=== PATIENT | female | born 1960 | race Caucasian/White ===

== ENCOUNTER 2016-12-04 13:57 | Emergency (ER) | payer BC ==
[~2016-12-04] VITALS: Ht 165.1 cm; Wt 109.2 kg
[2016-12-04 13:59] VITALS: Ht 165.1 cm; Wt 109.2 kg
--- OUTSIDE RECORDS SUMMARY | 2016-12-04 14:10 | XMS REPORT | CCD ---
Author Author LAURYN JACKSON Organization Unknown Address [address] [place], [place] [address] Phone 0 Care Team Providers Care Ophthalmology Technician Name Role Phone SHYANNE, E Attending Physician 0 Vital Signs Unknown or Not Available. Allergies Allergy Code Allergy Type Reaction Status CEFTIN 865096 Drug allergy Active CEFZIL 513929 Drug allergy Active Procedures Unknown or Not Available. History of Immunizations Immunization Code Date pneumococcal, unspecified formulation 109 03/06/2014 Problems Unknown or Not Available. Results PT/INR Test Name Code Test Result Test Units Test Date/Time PT 25.8 Secs 06/10/2014 13:30 INR 2.39 06/10/2014 13:30 Medications Medication Code Dose Units Frequency Route Modification Start Date/Time Stop Date/ Time Premarin 0.3MG Oral Tablet 056647 0.3 MILLIGRAMS DAILY ORAL 05/11/2014 13:33 Atenolol 25MG Oral Tablet 579017 25 MILLIGRAMS DAILY ORAL 05/11/2014 13:33 Neurontin 100MG Oral Capsule 303685 300 MILLIGRAMS FOUR TIMES A DAY ORAL 05/11/2014 13:33 Mobic 7.5MG Oral Tablet 542020 15 MILLIGRAMS DAILY ORAL 05/11/2014 13:33 Sertraline 100MG Oral Tablet 068840 200 MILLIGRAMS DAILY ORAL 05/11/2014 13:33 Geodon 80MG Oral Capsule 586029 160 MILLIGRAMS AT BEDTIME ORAL 05/11/2014 13:33 Trazodone 50MG Oral Tablet 932625 50 MILLIGRAMS AT BEDTIME ORAL 05/11/2014 13:33 Metformin 500MG Oral Tablet 526879 500 MILLIGRAMS AT BEDTIME ORAL 05/11/2014 13:33 Tramadol 50MG Oral Tablet 010693 100 MILLIGRAMS QID ORAL 05/11/2014 13:33 Valium 2MG Oral Tablet 398343 2 MILLIGRAMS Q8 H PRN ORAL 05/11/2014 13:33 Oxycodone HCl 15MG Oral Tablet 2447950 15 MILLIGRAMS Q4 hrs PRN ORAL 05/11/2014 13:33 Coumadin 5MG Oral Tablet 590742 5 MILLIGRAMS DAILY BY MOUTH 05/11/2014 13:58 Bactrim DS 800MG-160MG Oral Tablet 564891 1 TABLET TWICE A DAY BY MOUTH 05/11/2014 14:34 Medications Administered Unknown or Not Available. Encounters Unknown or Not Available. Social History Smoking Status Code Start Date End Date Never smoker [id number] Patient Decision Aids Unknown or Not Available. Discharge Instructions You were admitted to [facility] on 06/10/2014. Should you have any questions prior to discharge, please contact a member of your healthcare team. If you have left the hospital and have any questions, please contact your primary care physician. Chief Complaint and Reason For Visit Chief Complaint Date of Onset LAB RECURRING Function Status Unknown or Not Available. Plan of Care Unknown or Not Available. Referral/Transition of Care Unknown or Not Available.
--- OUTSIDE RECORDS SUMMARY | 2016-12-04 14:10 | XMS REPORT | Continuity of Care Document ---
Author Author [facility] Organization [facility] Address Unknown Phone Unavailable Care Team Providers Care Business English Instructor Name Role Phone Guillermo Stephens Primary Care Physician [phone] Source Comments Some departments are not documenting in the electronic medical record. If you do not see the information that you expected, contact Release of Information in the Health Information Management department at [phone] for further assistance in locating additional records.[facility] Active Allergies and Adverse Reactions Allergen Noted Date Severity Reactions Comments Ceftin 02/03/2014 RASH Cefzil 02/03/2014 RASH Current Medications Prescription Sig. Disp. Refills Start End Date Status Date estrogens, conjugated Take 0.3 mg by mouth Active (PREMARIN) 0.3 mg tablet daily. traZODone (DESYREL) 50 mg Take 50 mg by mouth at Active tablet bedtime daily. metFORMIN (GLUCOPHAGE) Take 500 mg by mouth at Active 500 mg tablet bedtime daily. sertraline (ZOLOFT) 100 Take 200 mg by mouth Active mg tablet daily. atenolol (TENORMIN) 25 mg Take 25 mg by mouth Active tablet daily. ziprasidone (GEODON) 80 Take 160 mg by mouth at Active mg capsule bedtime daily. methocarbamol (ROBAXIN) Take 750 mg by mouth Active 750 mg tablet every 6 hours as needed. gabapentin (NEURONTIN) Take 300 mg by mouth Active 100 mg capsule twice daily. oxyCODONE (ROXICODONE) 5 Take 1-3 Tabs by mouth 150 Tab 0 03/07/20 Active mg tablet every 3 hours as needed 14 for Pain Earliest Fill Date: 03/07/14 oxyCODONE SR (OXYCONTIN) Take 1 Tab by mouth every 30 Tab 0 03/07/20 Active 10 mg tablet 12 hours Earliest Fill 14 Date: 03/07/14 diazepam (VALIUM) 2 mg Take 1 Tab by mouth every 30 Tab 0 03/07/20 Active tablet 8 hours as needed. 14 docusate (COLACE) 100 mg Take 1 Cap by mouth twice 60 Cap 0 03/07/20 Active capsule daily. 14 Active Problems Problem Noted Date Spinal stenosis 02/16/2014 Immunizations Name Dates Previously Given Next Due Pneumococcal Vaccine 03/05/2014 (23-Dalia Adult) Social History Tobacco Use Types Packs/Day Years Used Date Never Smoker Smokeless Tobacco: Never Used Alcohol Use Drinks/Week oz/Week Comments No Last Filed Vital Signs Vital Sign Reading Time Taken Blood Pressure 123/67 03/07/2014 2:10 PM CDT Pulse 70 03/07/2014 2:10 PM CDT Temperature 36.5 C (97.7 F) 03/07/2014 2:10 PM CDT Respiratory Rate - - Height 1.651 m (5' 5") 03/04/2014 1:15 PM CDT Weight 104.327 kg (230 lb) 03/04/2014 1:15 PM CDT Body Mass Index 38.27 03/04/2014 1:15 PM CDT Oxygen Saturation 98% 03/07/2014 2:10 PM CDT Plan of Care Health Maintenance Due Date Last Done Comments Hepatitis C Screening 1962 Physical (Comprehensive) 1969 Exam Pertussis Vaccine 1973 Tetanus Vaccine 1979 Cervical Cancer Screening 1983 Breast Cancer Screening 2002 Colorectal Cancer 2012 Screening Influenza Vaccine 06/08/2016 Results from Last 3 Months Not on file
--- OUTSIDE RECORDS SUMMARY | 2016-12-04 14:10 | XMS REPORT | CCD ---
Author Author MESSI ANDRES Organization Unknown Address [address], [place] [address] Phone 0 Care Team Providers Care Shoe Worker Name Role Phone MARCUS GARCIA Attending Physician [phone] Vital Signs Unknown or Not Available. Allergies Allergy Code Allergy Type Reaction Status CEFTIN 558510 Drug allergy Active CEFZIL 231132 Drug allergy Active Procedures Unknown or Not Available. History of Immunizations Immunization Code Date pneumococcal, unspecified formulation 109 03/06/2014 Problems Unknown or Not Available. Results Unknown or Not Available. Active Medications Medication Code Dose Units Frequency Route Modification Start Date/Time Metformin 500MG Oral Tablet 605455 500 MILLIGRAMS AT BEDTIME ORAL 05/11/2014 13:33 Prescription Detail 500 MILLIGRAMS ORAL AT BEDTIME Sertraline 100MG Oral Tablet 090142 200 MILLIGRAMS DAILY ORAL 05/11/2014 13:33 Prescription Detail 200 MILLIGRAMS ORAL DAILY Medications Administered During Visit Unknown or Not Available. Encounters Unknown or Not Available. Social History Smoking Status Code Start Date End Date Never smoker [id number] Patient Decision Aids Unknown or Not Available. Discharge Instructions You were admitted to [facility] on 11/06/2016 13:59 You were discharged from [facility] on 11/06/2016 14:00 Should you have any questions prior to discharge, please contact a member of your healthcare team. If you have left the hospital and have any questions, please contact your primary care physician. Chief Complaint and Reason For Visit Chief Complaint Date of Onset US VENOUS LT LOWER LEG Function Status Unknown or Not Available. Plan of Care Unknown or Not Available. Referral/Transition of Care Unknown or Not Available.
--- OUTSIDE RECORDS SUMMARY | 2016-12-04 14:10 | XMS REPORT | Continuity of Care Document ---
Author Author [facility] Organization [facility] Address Unknown Phone Unavailable Allergies Active Description Code Type Severity Reaction Onset Reported/Identified Relationship to Patient Clinical Status Yes Cefprozil Cefprozil Drug Allergy Moderate RASH 12/16/2012 Yes cefuroxime axetil cefuroxime axetil Drug Allergy Moderate RASH 12/16/2012 Yes cefazolin Drug Allergy Eczema (rash) 01/07/2013 Yes Ceftin Drug Allergy Eczema (rash) 01/07/2013 Yes No Known Food Allergies Food Allergy 01/07/2013 Medications Problems Date Dx Coded Attending Type Code Diagnosis Diagnosed By 11/13/2012 Benigno Alfaro MD A 805.4 FX LUMBAR VERTEBRA-CLOSE 01/10/2013 Benigno Alfaro MD Final 250.00 DM2/NOS UNCOMP NSU 01/10/2013 Benigno Alfaro MD Final 300.00 ANXIETY STATE NOS 01/10/2013 Benigno Alfaro MD Final 311 DEPRESSIVE DISORDER NEC 01/10/2013 Benigno Alfaro MD Final 401.9 HYPERTENSION NOS 01/10/2013 Benigno Alfaro MD Final 724.02 SP STENOSIS-LUMB S DAVIE 01/10/2013 Benigno Alfaro MD Final 805.4 FX LUMBAR VERTEBRA-CLSD Procedures Code Description Performed By Performed On PERCUT KYPHOPLASTYEVERARDO MD, Alan 01/10/2013 [id number] PERCUT KYPHOPLASTY, ADD-O Benigno Alfaro MD 01/10/2013 Results Test Result Range HGB HCT - 12/16/12 11:50 MEAN CELL VOLUME 91.2 fl 80.0-100.0 HEMOGLOBIN 15.0 gm/dL 12.0-16.0 HEMATOCRIT 44.3 % 37.0-47.0 METABOLIC PANEL, BASIC - 12/16/12 15:33 POTASSIUM 3.8 mmol/L 3.5-5.3 EST GFR (MDRD) > 60 mL/min > 59 ANION GAP 9 mmol/L 5-15 EST CrCl (CG) > 60 mL/min > 59 GLUCOSE 150 mg/dL 70-99 CALCIUM 9.2 mg/dL 8.5-10.1 BLOOD UREA NITROGEN 21 mg/dL 7-20 CREATININE 0.7 mg/dL 0.6-1.0 SODIUM 140 mmol/L 135-148 CHLORIDE 104 mmol/L 98-110 CARBON DIOXIDE 27 mmol/L 21-32 TOTAL PROTEIN - 12/16/12 15:33 TOTAL PROTEIN 7.3 gm/dL 6.4-8.2 ALBUMIN - 12/16/12 15:33 ALBUMIN 4.5 gm/dL 3.4-5.0 CBC W/DIFF - 12/16/12 15:33 EOSINOPHIL # 0.1 k/cumm 0.1-0.5 EOSINOPHIL % 1 % 2-4 GRANULOCYTE # 4.6 k/cumm 2.0-9.0 GRANULOCYTE % 68 % 50-75 LYMPHOCYTE # 1.7 k/cumm 1.0-4.0 LYMPHOCYTE % 25 % 20-30 MEAN CELL HGB 30.2 pg 27.0-33.0 MEAN CELL HGB CONCENTRATION 33.1 g/dL 32.0-37.0 MEAN CELL VOLUME 91.2 fl 80.0-100.0 MONOCYTE # 0.4 k/cumm 0.1-1.0 MONOCYTE % 6 % 4-6 RED BLOOD CELL 4.87 m/cumm 4.00-6.00 RED CELL DISTRIBUTION WIDTH 13.5 % 11.0- 15.6 WHITE BLOOD CELL 6.7 k/cumm 5.0-10.0 HEMOGLOBIN 14.7 gm/dL 12.0-16.0 HEMATOCRIT 44.4 % 37.0-47.0 PLATELET COUNT 135 k/cumm 150-400 SED RATE - 12/16/12 15:33 SED RATE 2 mm/hr 0-15 Encounters ACCT No. Visit Date/Time Discharge Status Pt. Type Provider Facility Loc./Unit Complaint [id number] 01/10/2013 04:57:00 2012 16:00:00 DIS Outpatient Dominic SMALLS, Benigno [address]
--- OUTSIDE RECORDS SUMMARY | 2016-12-04 14:10 | XMS REPORT | CCD ---
Author Author LAURYN JACKSON Organization Unknown Address [address] [place], [place] [id number] Phone 0 Care Team Providers Care Grades 1 6 Tutor Name Role Phone MILY PETER Attending Physician 0 Vital Signs Unknown or Not Available. Allergies Allergy Code Allergy Type Reaction Status CEFTIN 317422 Drug allergy Active CEFZIL 800464 Drug allergy Active Procedures Unknown or Not Available. History of Immunizations Immunization Code Date pneumococcal, unspecified formulation 109 03/06/2014 Problems Unknown or Not Available. Results PT/INR - Collect Date/Time: 08/11/2014 15:40 Test Name Code Test Result Test Units Test Ref Range PT 33.1 Secs L=9.6 H=11.2 INR 3.04 L=0.00 H=4.00 Medications Medication Code Dose Units Frequency Route Modification Start Date/Time Stop Date/ Time Premarin 0.3MG Oral Tablet 036597 0.3 MILLIGRAMS DAILY ORAL 05/11/2014 13:33 Atenolol 25MG Oral Tablet 864938 25 MILLIGRAMS DAILY ORAL 05/11/2014 13:33 Neurontin 100MG Oral Capsule 616724 300 MILLIGRAMS FOUR TIMES A DAY ORAL 05/11/2014 13:33 Mobic 7.5MG Oral Tablet 659987 15 MILLIGRAMS DAILY ORAL 05/11/2014 13:33 Sertraline 100MG Oral Tablet 530933 200 MILLIGRAMS DAILY ORAL 05/11/2014 13:33 Geodon 80MG Oral Capsule 473432 160 MILLIGRAMS AT BEDTIME ORAL 05/11/2014 13:33 Trazodone 50MG Oral Tablet 629043 50 MILLIGRAMS AT BEDTIME ORAL 05/11/2014 13:33 Metformin 500MG Oral Tablet 974726 500 MILLIGRAMS AT BEDTIME ORAL 05/11/2014 13:33 Tramadol 50MG Oral Tablet 876332 100 MILLIGRAMS QID ORAL 05/11/2014 13:33 Valium 2MG Oral Tablet 350185 2 MILLIGRAMS Q8 H PRN ORAL 05/11/2014 13:33 Oxycodone HCl 15MG Oral Tablet 8284628 15 MILLIGRAMS Q4 hrs PRN ORAL 05/11/2014 13:33 Coumadin 5MG Oral Tablet 469179 5 MILLIGRAMS DAILY BY MOUTH 05/11/2014 13:58 Bactrim DS 800MG-160MG Oral Tablet 231286 1 TABLET TWICE A DAY BY MOUTH 05/11/2014 14:34 Medications Administered Unknown or Not Available. Encounters Encounter Diagnosis Diagnosis Code Start Date ACU DAM[place] EMB/[place] [id number] 08/11/2014 Social History Smoking Status Code Start Date End Date Never smoker [id number] Patient Decision Aids Unknown or Not Available. Discharge Instructions You were admitted to [facility] on 08/11/2014 with a principal diagnosis of ACU DAMIR EMB/THROM UNSPEC DP VESS LE. Should you have any questions prior to discharge, please contact a member of your healthcare team. If you have left the hospital and have any questions, please contact your primary care physician. Chief Complaint and Reason For Visit Chief Complaint Date of Onset RECURRING LAB Function Status Unknown or Not Available. Plan of Care Unknown or Not Available. Referral/Transition of Care Unknown or Not Available.
--- OUTSIDE RECORDS SUMMARY | 2016-12-04 14:10 | XMS REPORT | CCD ---
Author Author MESSI ANDRES Organization Unknown Address [address], [place] [address] Phone 0 Care Team Providers Care Director Operating Name Role Phone Casimiro SMITH Attending Physician [phone] C., N Nurse Assisstant 0 M., R Nurse Assisstant 0 Vital Signs Vital Sign Value Unit Date/Time Recent/Initial? Weight Measured 249 lbs 05/02/2016 08:35 Initial VS Height 65 in 2015 08:35 Initial VS BMI (Body Mass Index) 41.44 kg/m^2 05/02/2016 08:35 Initial VS BSA (Body Surface Area) 2.28 m^2 05/02/2016 08:35 Initial VS Allergies Allergy Code Allergy Type Reaction Status CEFTIN 914043 Drug allergy Active CEFZIL 037240 Drug allergy Active Procedures Procedure Code Procedure Type Date Colsc Flx [place] [address] C[place] 05/02/2016 Colsc Flx With Directed Submucosal Njx Any Sbst 18199 CPT 05/02/2016 Anesthesia, Lower Intestinal Endoscopy, Distal To Duode 50604 CPT 05/02/2016 History of Immunizations Immunization Code Date pneumococcal, unspecified formulation 109 03/06/2014 Problems Unknown or Not Available. Results Unknown or Not Available. Active Medications Unknown or Not Available. Medications Administered During Visit Unknown or Not Available. Encounters Encounter Diagnosis Diagnosis Code Start Date Rectal polyp K621 05/02/2016 Social History Smoking Status Code Start Date End Date Never smoker [id number] Patient Decision Aids Unknown or Not Available. Discharge Instructions You were admitted to [facility] on 05/02/2016 08:16 with a principal diagnosis of Rectal polyp You had the following procedures done: Colsc Flx W/Rmvl Of Tumor Polyp Lesion Snare Tq Colsc Flx With Directed Submucosal Njx Any Sbst Anesthesia, Lower Intestinal Endoscopy, Distal To Duode You were discharged from [facility] on 05/02/2016 11:28 Should you have any questions prior to discharge, please contact a member of your healthcare team. If you have left the hospital and have any questions, please contact your primary care physician. Chief Complaint and Reason For Visit Chief Complaint Date of Onset COLONOSCOPY Function Status Unknown or Not Available. Plan of Care Unknown or Not Available. Referral/Transition of Care Unknown or Not Available.
--- OUTSIDE RECORDS SUMMARY | 2016-12-04 14:10 | XMS REPORT | Summary of Care ---
Author Author Suresh Espinal M.D. Organization Unknown Address [address] [place] [address] [place] [address] Phone Unavailable Care Team Providers Care Switchman Supervisor Name Role Phone Suresh Espinal M.D. 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 Quantity: 30 Suresh Espinal M.D.* Started 22-Jul-2015 ActiveGabapentin 100 MG Oral Capsule TAKE 1 CAPSULE Every 6 hours * Refills: 0 Suresh Espinal M.D.* Started 22-Jul-2015 ActiveBusPIRone HCl - 10 MG Oral Tablet TAKE 1 TABLET 3 times daily PRN anxiety * Refills: 0 Suresh Espinal M.D.* Started 22-Jul-2015 ActiveAtenolol 25 MG Oral Tablet TAKE 1 TABLET DAILY. * Refills: 0 Suresh Espinal M.D.* Started 22-Jul-2015 ActiveSertraline HCl - 100 MG Oral Tablet TAKE 2 TABLETS DAILY. * Refills: 0 Suersh Espinal M.D.* Started 22-Jul-2015 ActiveTraZODone HCl - 100 MG Oral Tablet * Refills: 0 Suresh Espinal M.D.* Started 22-Jul-2015 ActiveMetFORMIN HCl - 500 MG Oral Tablet TAKE 1 TABLET DAILY DIRECTED. * Refills: 0 Suresh Espinal M.D.* Started 22-Jul-2015 ActiveZiprasidone HCl - 80 MG Oral Capsule TAKE 2 CAPSULES AT BEDTIME. * Refills: 0 Suresh Espinal M.D.* Started 22-Jul-2015 ActivePercocet 5-325 MG Oral Tablet TAKE 1 TABLET EVERY 4 TO 6 HOURS NEEDED FOR PAIN. * Refills: 0 * Started 31-Dec-2015 ActiveIbuprofen 400 MG Oral Tablet TAKE 1 TABLET Every 6 hours * Refills: 0 Suresh Espinal M.D.* Started 31-Dec-2015 ActiveSkelaxin 800 MG Oral Tablet TAKE 0.5 TABLET Every 6 hours * Refills: 0 Suresh Espinal M.D.* Started 31-Dec-2015 Active Allergies and Adverse Reactions Name Dates Details Ceftin Status: Active Cefzil Status: Active Past Medical History Name Dates Details History of Anxious appearance (799.29, R45.89) Status: Resolved History of Chronic back pain (724.5, M54.9) Status: Resolved History of Chronic pain (338.29, G89.29) Status: Resolved History of Deep vein thrombosis of lower extremity (453.40, I82.409) Status: Resolved History of Depressive disorder (311, F32.9) Status: Resolved History of Morbid obesity (278.01, E66.01) Status: Resolved History of osteoarthritis (V13.4, Z87.39) Status: Resolved History of PTSD (post-traumatic stress disorder) (309.81, F43.10) Status: Resolved History of Tachycardia (785.0, R00.0) Status: Resolved History of type 2 diabetes mellitus (V12.29, Z86.39) Status: Resolved History of urinary incontinence (V13.09, Z87.898) Status: Resolved Procedures Procedure Dates Details History of Section History of Cholecystectomy History of Appendectomy History of Tonsillectomy With Adenoidectomy History of Eye Surgery History of Tubal Ligation History of Total Abdominal Hysterectomy Procedures not documented Immunization Name Dates Details Immunizations not documented Family History Grandfather* Name Dates Details Family history of Colon cancer (153.9, C18.9) Status: Active Mother* Name Dates Details Family history of hypertension (V17.49, Z82.49) Status: Active Family history of cerebrovascular accident (CVA) (V17.1, Z82.3) Status: Active Family history of diabetes mellitus (V18.0, Z83.3) Status: Active Father* Name Dates Details Family history of hypertension (V17.49, Z82.49) Status: Active Family history of diabetes mellitus (V18.0, Z83.3) Status: Active Brother* Name Dates Details Family history of myocardial infarction (V17.3, Z82.49) Status: Active Social History Name Dates Details Smoking Status* Former smoker Vital Signs Date Test Result Details 31-Dec-2015 15:12 BP Systolic 132 mm[Hg] Status: BP Diastolic 78 mm[Hg] Status: Heart Rate 62 /min Status: Results Date Description Value Details Results not documented Plan of Care Planned Observations* Name Dates Details Planned Goals not documented Goal Planned Encounters* Appointment; Provider: Suresh Espinal On 15:30 Instructions * Instructions not documented Encounters Appointment; Suresh Espinal Encounter Diagnosis: Problem not documented On 31-Dec-2015 15:00 Appointment; Suresh Espinal Encounter Diagnosis: Problem not documented On 23-Jul-2015 09:45 Appointment; Nathan Meek Encounter Diagnosis: Problem not documented On 22-Jan-2015 10:00 Appointment; Nathan Meek Encounter Diagnosis: Problem not documented On 04-Dec-2014 08:15 Appointment; Nathan Meek Encounter Diagnosis: Problem not documented On 25-Sep-2014 10:45 Appointment; Nathan Meek Encounter Diagnosis: Problem not documented On 07-Aug-2014 09:00 Appointment; Nathan Meek Encounter Diagnosis: Problem not documented On 05-Jun-2014 08:45 Appointment; Nathan Meek Encounter Diagnosis: Problem not documented On 11:30
--- OUTSIDE RECORDS SUMMARY | 2016-12-04 14:11 | XMS REPORT | CCD ---
Author Author LAURYN JACKSON Organization Unknown Address [address], [place] [address] Phone 0 Care Team Providers Care Log Feeder Name Role Phone MILY PETER Attending Physician 0 Vital Signs Unknown or Not Available. Allergies Allergy Code Allergy Type Reaction Status CEFTIN 420996 Drug allergy Active CEFZIL 769774 Drug allergy Active Procedures Unknown or Not Available. History of Immunizations Immunization Code Date pneumococcal, unspecified formulation 109 03/06/2014 Problems Unknown or Not Available. Results HGB A1C - Collect Date/Time: 11/19/2014 13:24 Test Name Code Test Result Test Units Test Ref Range HGB A1C 6.3 % L=4.5 H=6.2 eAG 134 mg/dL Active Medications Medication Code Dose Units Frequency Route Modification Start Date/Time Bactrim DS 800MG-160MG Oral Tablet 347640 1 TABLET TWICE A DAY BY MOUTH 05/11/2014 14:34 Coumadin 5MG Oral Tablet 823421 5 MILLIGRAMS DAILY BY MOUTH 05/11/2014 13:58 Atenolol 25MG Oral Tablet 112609 25 MILLIGRAMS DAILY ORAL 05/11/2014 13:33 Geodon 80MG Oral Capsule 978350 160 MILLIGRAMS AT BEDTIME ORAL 05/11/2014 13:33 Metformin 500MG Oral Tablet 089610 500 MILLIGRAMS AT BEDTIME ORAL 05/11/2014 13:33 Mobic 7.5MG Oral Tablet 089151 15 MILLIGRAMS DAILY ORAL 05/11/2014 13:33 Neurontin 100MG Oral Capsule 761064 300 MILLIGRAMS FOUR TIMES A DAY ORAL 05/11/2014 13:33 Oxycodone HCl 15MG Oral Tablet 1671094 15 MILLIGRAMS Q4 hrs PRN ORAL 05/11/2014 13:33 Premarin 0.3MG Oral Tablet 777240 0.3 MILLIGRAMS DAILY ORAL 05/11/2014 13:33 Sertraline 100MG Oral Tablet 486445 200 MILLIGRAMS DAILY ORAL 05/11/2014 13:33 Tramadol 50MG Oral Tablet 294386 100 MILLIGRAMS QID ORAL 05/11/2014 13:33 Trazodone 50MG Oral Tablet 655979 50 MILLIGRAMS AT BEDTIME ORAL 05/11/2014 13:33 Valium 2MG Oral Tablet 516112 2 MILLIGRAMS Q8 H PRN ORAL 05/11/2014 13:33 Medications Administered During Visit Unknown or Not Available. Encounters Unknown or Not Available. Social History Smoking Status Code Start Date End Date Never smoker [id number] Patient Decision Aids Unknown or Not Available. Discharge Instructions You were admitted to [facility] on 11/19/2014. You were discharged from [facility] on 11/19/2014. Should you have any questions prior to discharge, please contact a member of your healthcare team. If you have left the hospital and have any questions, please contact your primary care physician. Chief Complaint and Reason For Visit Unknown or Not Available. Function Status Unknown or Not Available. Plan of Care Unknown or Not Available. Referral/Transition of Care Unknown or Not Available.
--- OUTSIDE RECORDS SUMMARY | 2016-12-04 14:11 | XMS REPORT | CCD ---
Author Author LAURYN JACKSON Organization Unknown Address [address] [place], [place] [address] Phone 0 Care Team Providers Care Ropeman Name Role Phone JAYE JOYCE Attending Physician [phone] JAYE JOYCE Primary Surgeon [phone] Vital Signs Vital Sign Value Unit Date/Time Recent/Initial? Weight Measured 224 lbs 05/04/2014 05:22 Initial VS Height 65 in 2013 05:22 Initial VS BMI (Body Mass Index) 37.28 kg/m^2 05/04/2014 05:22 Initial VS BSA (Body Surface Area) 2.16 m^2 05/04/2014 05:22 Initial VS Allergies Allergy Code Allergy Type Reaction Status CEFTIN 436591 Drug allergy Active CEFZIL 999385 Drug allergy Active Procedures Unknown or Not Available. History of Immunizations Unknown or Not Available. Problems Unknown or Not Available. Results Unknown or Not Available. Medications Unknown or Not Available. Medications Administered Unknown or Not Available. Encounters Unknown or Not Available. Social History Smoking Status Code Start Date End Date Never smoker [id number] Patient Decision Aids Unknown or Not Available. Discharge Instructions You were admitted to [facility] on 05/03/2014. You were discharged from [facility] on 05/03/2014. Should you have any questions prior to discharge, please contact a member of your healthcare team. If you have left the hospital and have any questions, please contact your primary care physician. Chief Complaint and Reason For Visit Chief Complaint Date of Onset BACK PAIN FROM BACK SX 1 MO AGO Function Status Unknown or Not Available. Plan of Care Unknown or Not Available. Referral/Transition of Care Unknown or Not Available.
--- OUTSIDE RECORDS SUMMARY | 2016-12-04 14:11 | XMS REPORT | CCD ---
Author Author MESSI ANDRES Organization Unknown Address [address] [place], [place] [address] Phone 0 Care Team Providers Care Oracle Ascp Consultant Name Role Phone JOSE MARCUS Attending Physician [phone] Vital Signs Unknown or Not Available. Allergies Allergy Code Allergy Type Reaction Status CEFTIN 352837 Drug allergy Active CEFZIL 915402 Drug allergy Active Procedures Unknown or Not Available. History of Immunizations Immunization Code Date pneumococcal, unspecified formulation 109 03/06/2014 Problems Unknown or Not Available. Results Unknown or Not Available. Active Medications Medication Code Dose Units Frequency Route Modification Start Date/Time Metformin 500MG Oral Tablet 380319 500 MILLIGRAMS AT BEDTIME ORAL 05/11/2014 13:33 Prescription Detail 500 MILLIGRAMS ORAL AT BEDTIME Sertraline 100MG Oral Tablet 820828 200 MILLIGRAMS DAILY ORAL 05/11/2014 13:33 Prescription Detail 200 MILLIGRAMS ORAL DAILY Medications Administered During Visit Unknown or Not Available. Encounters Unknown or Not Available. Social History Smoking Status Code Start Date End Date Never smoker [id number] Patient Decision Aids Unknown or Not Available. Discharge Instructions You were admitted to [facility] on 11/13/2016 11:20 You were discharged from [facility] on 11/13/2016 11:20 Should you have any questions prior to discharge, please contact a member of your healthcare team. If you have left the hospital and have any questions, please contact your primary care physician. Chief Complaint and Reason For Visit Chief Complaint Date of Onset MM BILAT SCREEN Function Status Unknown or Not Available. Plan of Care Unknown or Not Available. Referral/Transition of Care Unknown or Not Available.
--- OUTSIDE RECORDS SUMMARY | 2016-12-04 14:11 | XMS REPORT | CCD ---
Author Author LAURYN JACKSON Organization Unknown Address [address] [place], [place] [id number] Phone 0 Care Team Providers Care Food Service Technician Name Role Phone MILY PETER Attending Physician 0 Vital Signs Unknown or Not Available. Allergies Allergy Code Allergy Type Reaction Status CEFTIN 837110 Drug allergy Active CEFZIL 961693 Drug allergy Active Procedures Unknown or Not Available. History of Immunizations Immunization Code Date pneumococcal, unspecified formulation 109 03/06/2014 Problems Unknown or Not Available. Results Unknown or Not Available. Active Medications Medication Code Dose Units Frequency Route Modification Start Date/Time Bactrim DS 800MG-160MG Oral Tablet 065294 1 TABLET TWICE A DAY BY MOUTH 05/11/2014 14:34 Prescription Detail TAKE 1 TABLET BY MOUTH TWICE A DAY FOR 7 DAYS Coumadin 5MG Oral Tablet 042029 5 MILLIGRAMS DAILY BY MOUTH 05/11/2014 13:58 Prescription Detail TAKE 5 MILLIGRAMS BY MOUTH DAILY Atenolol 25MG Oral Tablet 107573 25 MILLIGRAMS DAILY ORAL 05/11/2014 13:33 Prescription Detail 25 MILLIGRAMS ORAL DAILY Geodon 80MG Oral Capsule 245504 160 MILLIGRAMS AT BEDTIME ORAL 05/11/2014 13:33 Prescription Detail 160 MILLIGRAMS ORAL AT BEDTIME Metformin 500MG Oral Tablet 311043 500 MILLIGRAMS AT BEDTIME ORAL 05/11/2014 13:33 Prescription Detail 500 MILLIGRAMS ORAL AT BEDTIME Mobic 7.5MG Oral Tablet 008411 15 MILLIGRAMS DAILY ORAL 05/11/2014 13:33 Prescription Detail 15 MILLIGRAMS ORAL DAILY Neurontin 100MG Oral Capsule 620432 300 MILLIGRAMS FOUR TIMES A DAY ORAL 05/11/2014 13:33 Prescription Detail 300 MILLIGRAMS ORAL FOUR TIMES A DAY Oxycodone HCl 15MG Oral Tablet 4429879 15 MILLIGRAMS Q4 hrs PRN ORAL 05/11/2014 13:33 Prescription Detail 15 MILLIGRAMS ORAL Q4 hrs PRN Premarin 0.3MG Oral Tablet 918394 0.3 MILLIGRAMS DAILY ORAL 05/11/2014 13:33 Prescription Detail 0.3 MILLIGRAMS ORAL DAILY Sertraline 100MG Oral Tablet 071521 200 MILLIGRAMS DAILY ORAL 05/11/2014 13:33 Prescription Detail 200 MILLIGRAMS ORAL DAILY Tramadol 50MG Oral Tablet 768094 100 MILLIGRAMS QID ORAL 05/11/2014 13:33 Prescription Detail 100 MILLIGRAMS ORAL QID Trazodone 50MG Oral Tablet 157671 50 MILLIGRAMS AT BEDTIME ORAL 05/11/2014 13:33 Prescription Detail 50 MILLIGRAMS ORAL AT BEDTIME Valium 2MG Oral Tablet 236706 2 MILLIGRAMS Q8 H PRN ORAL 05/11/2014 13:33 Prescription Detail 2 MILLIGRAMS ORAL Q8 H PRN Medications Administered During Visit Unknown or Not Available. Encounters Unknown or Not Available. Social History Smoking Status Code Start Date End Date Never smoker [id number] Patient Decision Aids Unknown or Not Available. Discharge Instructions You were admitted to [facility] on 05/25/2015. You were discharged from [facility] on 05/25/2015. Should you have any questions prior to discharge, please contact a member of your healthcare team. If you have left the hospital and have any questions, please contact your primary care physician. Chief Complaint and Reason For Visit Chief Complaint Date of Onset LAB Function Status Unknown or Not Available. Plan of Care Unknown or Not Available. Referral/Transition of Care Unknown or Not Available.
--- OUTSIDE RECORDS SUMMARY | 2016-12-04 14:11 | XMS REPORT | CCD ---
Author Author LAURYN JACKSON Organization Unknown Address [address] [place], [place] [address] Phone 0 Care Team Providers Care Security Sales Manager Name Role Phone Oral FORBES Attending Physician 0 Oral FORBES Primary Surgeon 0 Vital Signs Unknown or Not Available. Allergies Allergy Code Allergy Type Reaction Status CEFTIN 324090 Drug allergy Active CEFZIL 745027 Drug allergy Active Procedures Unknown or Not Available. History of Immunizations Immunization Code Date pneumococcal, unspecified formulation 109 03/06/2014 Problems Unknown or Not Available. Results Unknown or Not Available. Active Medications Medication Code Dose Units Frequency Route Modification Start Date/Time Bactrim DS 800MG-160MG Oral Tablet 126150 1 TABLET TWICE A DAY BY MOUTH 05/11/2014 14:34 Coumadin 5MG Oral Tablet 462644 5 MILLIGRAMS DAILY BY MOUTH 05/11/2014 13:58 Atenolol 25MG Oral Tablet 618641 25 MILLIGRAMS DAILY ORAL 05/11/2014 13:33 Geodon 80MG Oral Capsule 451043 160 MILLIGRAMS AT BEDTIME ORAL 05/11/2014 13:33 Metformin 500MG Oral Tablet 450667 500 MILLIGRAMS AT BEDTIME ORAL 05/11/2014 13:33 Mobic 7.5MG Oral Tablet 787785 15 MILLIGRAMS DAILY ORAL 05/11/2014 13:33 Neurontin 100MG Oral Capsule 051890 300 MILLIGRAMS FOUR TIMES A DAY ORAL 05/11/2014 13:33 Oxycodone HCl 15MG Oral Tablet 5442970 15 MILLIGRAMS Q4 hrs PRN ORAL 05/11/2014 13:33 Premarin 0.3MG Oral Tablet 650148 0.3 MILLIGRAMS DAILY ORAL 05/11/2014 13:33 Sertraline 100MG Oral Tablet 332875 200 MILLIGRAMS DAILY ORAL 05/11/2014 13:33 Tramadol 50MG Oral Tablet 652669 100 MILLIGRAMS QID ORAL 05/11/2014 13:33 Trazodone 50MG Oral Tablet 544662 50 MILLIGRAMS AT BEDTIME ORAL 05/11/2014 13:33 Valium 2MG Oral Tablet 942887 2 MILLIGRAMS Q8 H PRN ORAL 05/11/2014 13:33 Medications Administered During Visit Unknown or Not Available. Encounters Unknown or Not Available. Social History Smoking Status Code Start Date End Date Never smoker [id number] Patient Decision Aids Unknown or Not Available. Discharge Instructions You were admitted to [facility] on 10/13/2014. You were discharged from [facility] on 10/13/2014. Should you have any questions prior to discharge, please contact a member of your healthcare team. If you have left the hospital and have any questions, please contact your primary care physician. Chief Complaint and Reason For Visit Chief Complaint Date of Onset SEVERE BACK PAIN/SPASMS 10/13/2014 Function Status Unknown or Not Available. Plan of Care Unknown or Not Available. Referral/Transition of Care Unknown or Not Available.
--- OUTSIDE RECORDS SUMMARY | 2016-12-04 14:11 | XMS REPORT | CCD ---
Author Author LAURYN JACKSON Organization Unknown Address [address] [place], [place] [phone] Phone 0 Care Team Providers Care Playground Worker Name Role Phone ILEANA MALIN Attending Physician 0 Vital Signs Unknown or Not Available. Allergies Allergy Code Allergy Type Reaction Status CEFTIN 551726 Drug allergy Active CEFZIL 189448 Drug allergy Active Procedures Unknown or Not Available. History of Immunizations Immunization Code Date pneumococcal, unspecified formulation 109 03/06/2014 Problems Unknown or Not Available. Results Unknown or Not Available. Active Medications Medication Code Dose Units Frequency Route Modification Start Date/Time Bactrim DS 800MG-160MG Oral Tablet 711922 1 TABLET TWICE A DAY BY MOUTH 05/11/2014 14:34 Coumadin 5MG Oral Tablet 509311 5 MILLIGRAMS DAILY BY MOUTH 05/11/2014 13:58 Atenolol 25MG Oral Tablet 370013 25 MILLIGRAMS DAILY ORAL 05/11/2014 13:33 Geodon 80MG Oral Capsule 261537 160 MILLIGRAMS AT BEDTIME ORAL 05/11/2014 13:33 Metformin 500MG Oral Tablet 510876 500 MILLIGRAMS AT BEDTIME ORAL 05/11/2014 13:33 Mobic 7.5MG Oral Tablet 951028 15 MILLIGRAMS DAILY ORAL 05/11/2014 13:33 Neurontin 100MG Oral Capsule 464072 300 MILLIGRAMS FOUR TIMES A DAY ORAL 05/11/2014 13:33 Oxycodone HCl 15MG Oral Tablet 9896447 15 MILLIGRAMS Q4 hrs PRN ORAL 05/11/2014 13:33 Premarin 0.3MG Oral Tablet 074892 0.3 MILLIGRAMS DAILY ORAL 05/11/2014 13:33 Sertraline 100MG Oral Tablet 210291 200 MILLIGRAMS DAILY ORAL 05/11/2014 13:33 Tramadol 50MG Oral Tablet 508095 100 MILLIGRAMS QID ORAL 05/11/2014 13:33 Trazodone 50MG Oral Tablet 461332 50 MILLIGRAMS AT BEDTIME ORAL 05/11/2014 13:33 Valium 2MG Oral Tablet 142836 2 MILLIGRAMS Q8 H PRN ORAL 05/11/2014 13:33 Medications Administered During Visit Unknown or Not Available. Encounters Unknown or Not Available. Social History Smoking Status Code Start Date End Date Never smoker [id number] Patient Decision Aids Unknown or Not Available. Discharge Instructions You were admitted to [facility] on 09/07/2014. You were discharged from [facility] on 09/07/2014. Should you have any questions prior to discharge, please contact a member of your healthcare team. If you have left the hospital and have any questions, please contact your primary care physician. Chief Complaint and Reason For Visit Chief Complaint Date of Onset XRAY Function Status Unknown or Not Available. Plan of Care Unknown or Not Available. Referral/Transition of Care Unknown or Not Available.
--- OUTSIDE RECORDS SUMMARY | 2016-12-04 14:11 | XMS REPORT | CCD ---
Author Author MESSI ANDRES Organization Unknown Address [address] [place], [place] [address] Phone 0 Care Team Providers Care Dietitian Chief Name Role Phone Oral FORBES Attending Physician 0 Vital Signs Unknown or Not Available. Allergies Allergy Code Allergy Type Reaction Status CEFTIN 601048 Drug allergy Active CEFZIL 733392 Drug allergy Active Procedures Unknown or Not Available. History of Immunizations Immunization Code Date pneumococcal, unspecified formulation 109 03/06/2014 Problems Unknown or Not Available. Results Unknown or Not Available. Active Medications Medication Code Dose Units Frequency Route Modification Start Date/Time Bactrim DS 800MG-160MG Oral Tablet 141415 1 TABLET TWICE A DAY BY MOUTH 05/11/2014 14:34 Prescription Detail TAKE 1 TABLET BY MOUTH TWICE A DAY FOR 7 DAYS Coumadin 5MG Oral Tablet 314763 5 MILLIGRAMS DAILY BY MOUTH 05/11/2014 13:58 Prescription Detail TAKE 5 MILLIGRAMS BY MOUTH DAILY Atenolol 25MG Oral Tablet 252836 25 MILLIGRAMS DAILY ORAL 05/11/2014 13:33 Prescription Detail 25 MILLIGRAMS ORAL DAILY Geodon 80MG Oral Capsule 328729 160 MILLIGRAMS AT BEDTIME ORAL 05/11/2014 13:33 Prescription Detail 160 MILLIGRAMS ORAL AT BEDTIME Metformin 500MG Oral Tablet 647331 500 MILLIGRAMS AT BEDTIME ORAL 05/11/2014 13:33 Prescription Detail 500 MILLIGRAMS ORAL AT BEDTIME Mobic 7.5MG Oral Tablet 419198 15 MILLIGRAMS DAILY ORAL 05/11/2014 13:33 Prescription Detail 15 MILLIGRAMS ORAL DAILY Neurontin 100MG Oral Capsule 352874 300 MILLIGRAMS FOUR TIMES A DAY ORAL 05/11/2014 13:33 Prescription Detail 300 MILLIGRAMS ORAL FOUR TIMES A DAY Oxycodone HCl 15MG Oral Tablet 6828643 15 MILLIGRAMS Q4 hrs PRN ORAL 05/11/2014 13:33 Prescription Detail 15 MILLIGRAMS ORAL Q4 hrs PRN Premarin 0.3MG Oral Tablet 730696 0.3 MILLIGRAMS DAILY ORAL 05/11/2014 13:33 Prescription Detail 0.3 MILLIGRAMS ORAL DAILY Sertraline 100MG Oral Tablet 917531 200 MILLIGRAMS DAILY ORAL 05/11/2014 13:33 Prescription Detail 200 MILLIGRAMS ORAL DAILY Tramadol 50MG Oral Tablet 859842 100 MILLIGRAMS QID ORAL 05/11/2014 13:33 Prescription Detail 100 MILLIGRAMS ORAL QID Trazodone 50MG Oral Tablet 315103 50 MILLIGRAMS AT BEDTIME ORAL 05/11/2014 13:33 Prescription Detail 50 MILLIGRAMS ORAL AT BEDTIME Valium 2MG Oral Tablet 453104 2 MILLIGRAMS Q8 H PRN ORAL 05/11/2014 13:33 Prescription Detail 2 MILLIGRAMS ORAL Q8 H PRN Medications Administered During Visit Unknown or Not Available. Encounters Encounter Diagnosis Diagnosis Code Start Date Type 2 diabetes mellitus without complications E119 02/25/2016 Social History Smoking Status Code Start Date End Date Never smoker [id number] Patient Decision Aids Unknown or Not Available. Discharge Instructions You were admitted to [facility] on 02/25/2016 14:17 with a principal diagnosis of Type 2 diabetes mellitus without complications You were discharged from [facility] on 02/25/2016 14:17 Should you have any questions prior to [...]
--- OUTSIDE RECORDS SUMMARY | 2016-12-04 14:12 | XMS REPORT | CCD ---
Author Author MESSI ANDRES Organization Unknown Address [address] [place], [place] [address] Phone 0 Care Team Providers Care Senior Validation Engineer Name Role Phone JOSE MARCUS Attending Physician [phone] Vital Signs Unknown or Not Available. Allergies Allergy Code Allergy Type Reaction Status CEFTIN 656066 Drug allergy Active CEFZIL 751384 Drug allergy Active Procedures Unknown or Not Available. History of Immunizations Immunization Code Date pneumococcal, unspecified formulation 109 03/06/2014 Problems Unknown or Not Available. Results Unknown or Not Available. Active Medications Medication Code Dose Units Frequency Route Modification Start Date/Time Metformin 500MG Oral Tablet 594937 500 MILLIGRAMS AT BEDTIME ORAL 05/11/2014 13:33 Prescription Detail 500 MILLIGRAMS ORAL AT BEDTIME Sertraline 100MG Oral Tablet 254991 200 MILLIGRAMS DAILY ORAL 05/11/2014 13:33 Prescription Detail 200 MILLIGRAMS ORAL DAILY Medications Administered During Visit Unknown or Not Available. Encounters Encounter Diagnosis Diagnosis Code Start Date Lumbago with sciatica, left side M5442 Social History Smoking Status Code Start Date End Date Never smoker [id number] Patient Decision Aids Unknown or Not Available. Discharge Instructions You were admitted to [facility] on 11/13/2016 09:35 with a principal diagnosis of Lumbago with sciatica, left side You were discharged from [facility] Should you have any questions prior to discharge, please contact a member of your healthcare team. If you have left the hospital and have any questions, please contact your primary care physician. Chief Complaint and Reason For Visit Chief Complaint Date of Onset PHY THER Function Status Unknown or Not Available. Plan of Care Unknown or Not Available. Referral/Transition of Care Unknown or Not Available.
--- OUTSIDE RECORDS SUMMARY | 2016-12-04 14:12 | XMS REPORT | CCD ---
Author Author MESSI ANDRES Organization Unknown Address [address] [place], [place] [address] Phone 0 Care Team Providers Care Shank Boner Name Role Phone MILY PETER Attending Physician 0 Vital Signs Unknown or Not Available. Allergies Allergy Code Allergy Type Reaction Status CEFTIN 023782 Drug allergy Active CEFZIL 983308 Drug allergy Active Procedures Unknown or Not Available. History of Immunizations Immunization Code Date pneumococcal, unspecified formulation 109 03/06/2014 Problems Unknown or Not Available. Results Unknown or Not Available. Active Medications Medication Code Dose Units Frequency Route Modification Start Date/Time Bactrim DS 800MG-160MG Oral Tablet 869273 1 TABLET TWICE A DAY BY MOUTH 05/11/2014 14:34 Prescription Detail TAKE 1 TABLET BY MOUTH TWICE A DAY FOR 7 DAYS Coumadin 5MG Oral Tablet 668912 5 MILLIGRAMS DAILY BY MOUTH 05/11/2014 13:58 Prescription Detail TAKE 5 MILLIGRAMS BY MOUTH DAILY Atenolol 25MG Oral Tablet 266546 25 MILLIGRAMS DAILY ORAL 05/11/2014 13:33 Prescription Detail 25 MILLIGRAMS ORAL DAILY Geodon 80MG Oral Capsule 588858 160 MILLIGRAMS AT BEDTIME ORAL 05/11/2014 13:33 Prescription Detail 160 MILLIGRAMS ORAL AT BEDTIME Metformin 500MG Oral Tablet 659219 500 MILLIGRAMS AT BEDTIME ORAL 05/11/2014 13:33 Prescription Detail 500 MILLIGRAMS ORAL AT BEDTIME Mobic 7.5MG Oral Tablet 276837 15 MILLIGRAMS DAILY ORAL 05/11/2014 13:33 Prescription Detail 15 MILLIGRAMS ORAL DAILY Neurontin 100MG Oral Capsule 878357 300 MILLIGRAMS FOUR TIMES A DAY ORAL 05/11/2014 13:33 Prescription Detail 300 MILLIGRAMS ORAL FOUR TIMES A DAY Oxycodone HCl 15MG Oral Tablet 3429503 15 MILLIGRAMS Q4 hrs PRN ORAL 05/11/2014 13:33 Prescription Detail 15 MILLIGRAMS ORAL Q4 hrs PRN Premarin 0.3MG Oral Tablet 807683 0.3 MILLIGRAMS DAILY ORAL 05/11/2014 13:33 Prescription Detail 0.3 MILLIGRAMS ORAL DAILY Sertraline 100MG Oral Tablet 034906 200 MILLIGRAMS DAILY ORAL 05/11/2014 13:33 Prescription Detail 200 MILLIGRAMS ORAL DAILY Tramadol 50MG Oral Tablet 653251 100 MILLIGRAMS QID ORAL 05/11/2014 13:33 Prescription Detail 100 MILLIGRAMS ORAL QID Trazodone 50MG Oral Tablet 223726 50 MILLIGRAMS AT BEDTIME ORAL 05/11/2014 13:33 Prescription Detail 50 MILLIGRAMS ORAL AT BEDTIME Valium 2MG Oral Tablet 871541 2 MILLIGRAMS Q8 H PRN ORAL 05/11/2014 13:33 Prescription Detail 2 MILLIGRAMS ORAL Q8 H PRN Medications Administered During Visit Unknown or Not Available. Encounters Encounter Diagnosis Diagnosis Code Start Date Low back pain M545 2015 Social History Smoking Status Code Start Date End Date Never smoker [id number] Patient Decision Aids Unknown or Not Available. Discharge Instructions You were admitted to [facility] on 2015 with a principal diagnosis of Low back pain. Should you have any questions prior to [...]
--- OUTSIDE RECORDS SUMMARY | 2016-12-04 14:12 | XMS REPORT | CCD ---
Author Author ARMANI PARNELL Organization Unknown Address [address] [place], [place] [address] Phone 0 Care Team Providers Care Ribbon Winder Name Role Phone SANTI, A Attending Physician 0 SANTI, A Primary Surgeon 0 Vital Signs Unknown. Allergies Allergy Code Allergy Type Reaction Status CEFZIL 0 Drug allergy (disorder) Active CEFTIN 0 Drug allergy (disorder) Active Procedures Unknown. History of Immunizations Unknown. Problems Unknown. Results COMP METABOLIC Test Name Code Test Result Test Units Test Date/Time *IF MULTIPLY RESULT BY 1.210 N/A 08/14/2013 19:15 AST 58.0000 U/L 08/14/2013 19:15 CRITICAL < 30 mL/min N/A 08/14/2013 19:15 ALT 113.0000 U/L 08/14/2013 19:15 ALKALINE PHOS 95.0000 U/L 08/14/2013 19:15 ALBUMIN 4.5000 g/dL 08/14/2013 19:15 CO2 34.0000 mmol/L 08/14/2013 19:15 CHLORIDE 103.0000 mmol/L 08/14/2013 19:15 CALCIUM 9.2000 mg/ dL 08/14/2013 19:15 BUN 10.0000 mg/dL 08/14/2013 19:15 TOTAL PROTEIN 7.3000 g/dL 08/14/2013 19:15 TOTAL BILI 0.7000 mg /dL 08/14/2013 19:15 SODIUM 144.0000 mmol /L 08/14/2013 19:15 POTASSIUM 3.4000 mmol/L 08/14/2013 19:15 GLUCOSE 119.0000 mg/ dL 08/14/2013 19:15 AGE 52.0000 YE[age] 08/14/2013 19:15 GFR 70.4000 08/14/2013 19:15 CREATININE 0.9000 mg /dL 08/14/2013 19:15 NORMAL RANGE > 60 mL/min N/A 08/14/2013 19:15 LOW 30 - 60 mL/min N/A 08/14/2013 19:15 GFR INTERPRETATION N/A 08/14/2013 19:15 (GFR ESTIMATED PER AGE -- UNDER 18 YRS NOT APPLICABLE) N/A 08/14/2013 19:15 COMPREHENSIVE METABOLIC PANEL N/A 08/14/2013 19:15 CBC W/ DIFF Test Name Code Test Result Test Units Test Date/Time CBC W/ DIFF N/A 08/14/2013 19:15 LYMPHOCYTES 19.6000 % 08/14/2013 19:15 REFLEX MAN DIFF NO N /A 08/14/2013 19:15 HEMOGLOBIN 15.5000 g /dL 08/14/2013 19:15 HEMATOCRIT 46.1000 % 08/14/2013 19:15 EOSINOPHILS 0.7000 % 08/14/2013 19:15 MONOCYTES 4.6000 % 08/14/2013 19:15 MCV 91.0000 fL 08/14/2013 19:15 MCHC 33.7000 g/dL 08/14/2013 19:15 MCH 30.7000 pg 08/14/2013 19:15 WBC 7.0000 x10^3 08/14/2013 19:15 RDW 11.6000 % 08/14/2013 19:15 RBC 5.0600 x10^6 08/14/2013 19:15 PLATELETS 139.0000 x10^3 08/14/2013 19:15 BASOPHILS 0.8000 % 08/14/2013 19:15 NEUTROPHILS 74.3000 % 08/14/2013 19:15 MPV 7.6000 fL 08/14/2013 19:15 Medications Unknown. Medications Administered Unknown. Encounters Unknown. Social History Smoking Status Code Start Date End Date Unknown if ever smoked [id number] Patient Decision Aids Unknown. Instructions You were admitted to [facility] on 08/14/2013. You had the following tests done: AGE ALBUMIN ALKALINE PHOS ALT AST BASOPHILS BUN CALCIUM CHLORIDE CO2 CREATININE EOSINOPHILS GFR GLUCOSE HEMATOCRIT HEMOGLOBIN LYMPHOCYTES MCH MCHC MCV MONOCYTES MPV NEUTROPHILS PLATELETS POTASSIUM RBC RDW REFLEX MAN DIFF SODIUM TOTAL BILI TOTAL PROTEIN WBC You were discharged from [facility] on 08/14/2013. Should you have any questions prior to discharge, please contact a member of your healthcare team. If you have left the hospital and have any questions, please contact your primary care physician. Chief Complaint and Reason For Visit Unknown. Function Status Unknown. Plan of Care Unknown.
--- OUTSIDE RECORDS SUMMARY | 2016-12-04 14:12 | XMS REPORT | CCD ---
Author Author LAURYN JACKSON Organization Unknown Address [address], [place] [id number] Phone 0 Care Team Providers Care Self Sealing Fuel Tank Repairer Name Role Phone MILY PETER Attending Physician 0 Vital Signs Unknown or Not Available. Allergies Allergy Code Allergy Type Reaction Status CEFTIN 771957 Drug allergy Active CEFZIL 629358 Drug allergy Active Procedures Unknown or Not Available. History of Immunizations Immunization Code Date pneumococcal, unspecified formulation 109 03/06/2014 Problems Unknown or Not Available. Results PT/INR - Collect Date/Time: 10/27/2014 11:15 Test Name Code Test Result Test Units Test Ref Range PT 33.5 Secs L=9.6 H=11.2 INR 3.07 L=0.00 H=4.00 Active Medications Medication Code Dose Units Frequency Route Modification Start Date/Time Bactrim DS 800MG-160MG Oral Tablet [id number] 1 TABLET TWICE A DAY BY MOUTH 05/11/2014 14:34 Coumadin 5MG Oral Tablet [id number] 5 MILLIGRAMS DAILY BY MOUTH 05/11/2014 13:58 Atenolol 25MG Oral Tablet [id number] 25 MILLIGRAMS DAILY ORAL 05/11/2014 13:33 Geodon 80MG Oral Capsule 069703 160 MILLIGRAMS AT BEDTIME ORAL 05/11/2014 13:33 Metformin 500MG Oral Tablet [id number] 500 MILLIGRAMS AT BEDTIME ORAL 05/11/2014 13:33 Mobic 7.5MG Oral Tablet 937025 15 MILLIGRAMS DAILY ORAL 05/11/2014 13:33 Neurontin 100MG Oral Capsule 396388 300 MILLIGRAMS FOUR TIMES A DAY ORAL 05/11/2014 13:33 Oxycodone HCl 15MG Oral Tablet 9933514 15 MILLIGRAMS Q4 hrs PRN ORAL 05/11/2014 13:33 Premarin 0.3MG Oral Tablet 926927 0.3 MILLIGRAMS DAILY ORAL 05/11/2014 13:33 Sertraline 100MG Oral Tablet 834696 200 MILLIGRAMS DAILY ORAL 05/11/2014 13:33 Tramadol 50MG Oral Tablet 518253 100 MILLIGRAMS QID ORAL 05/11/2014 13:33 Trazodone 50MG Oral Tablet 525710 50 MILLIGRAMS AT BEDTIME ORAL 05/11/2014 13:33 Valium 2MG Oral Tablet 812340 2 MILLIGRAMS Q8 H PRN ORAL 05/11/2014 13:33 Medications Administered During Visit Unknown or Not Available. Encounters Unknown or Not Available. Social History Smoking Status Code Start Date End Date Never smoker [id number] Patient Decision Aids Unknown or Not Available. Discharge Instructions You were admitted to [facility] AND [facility] on 10/27/2014. Should you have any questions prior to [...]
--- OUTSIDE RECORDS SUMMARY | 2016-12-04 14:12 | XMS REPORT | CCD ---
Author Author LAURYN JACKSON Organization Unknown Address [address], [place] [id number] Phone 0 Care Team Providers Care Manager Education Name Role Phone MILY PETER Attending Physician 0 Vital Signs Unknown or Not Available. Allergies Allergy Code Allergy Type Reaction Status CEFTIN 125677 Drug allergy Active CEFZIL 977630 Drug allergy Active Procedures Unknown or Not Available. History of Immunizations Immunization Code Date pneumococcal, unspecified formulation 109 03/06/2014 Problems Unknown or Not Available. Results PT/INR - Collect Date/Time: 09/14/2014 11:12 Test Name Code Test Result Test Units Test Ref Range PT 32.6 Secs L=9.6 H=11.2 INR 2.99 L=0.00 H=4.00 Active Medications Medication Code Dose Units Frequency Route Modification Start Date/Time Bactrim DS 800MG-160MG Oral Tablet 529687 1 TABLET TWICE A DAY BY MOUTH 05/11/2014 14:34 Coumadin 5MG Oral Tablet 895028 5 MILLIGRAMS DAILY BY MOUTH 05/11/2014 13:58 Atenolol 25MG Oral Tablet 112378 25 MILLIGRAMS DAILY ORAL 05/11/2014 13:33 Geodon 80MG Oral Capsule 667376 160 MILLIGRAMS AT BEDTIME ORAL 05/11/2014 13:33 Metformin 500MG Oral Tablet 505126 500 MILLIGRAMS AT BEDTIME ORAL 05/11/2014 13:33 Mobic 7.5MG Oral Tablet 490593 15 MILLIGRAMS DAILY ORAL 05/11/2014 13:33 Neurontin 100MG Oral Capsule 214235 300 MILLIGRAMS FOUR TIMES A DAY ORAL 05/11/2014 13:33 Oxycodone HCl 15MG Oral Tablet 1784944 15 MILLIGRAMS Q4 hrs PRN ORAL 05/11/2014 13:33 Premarin 0.3MG Oral Tablet 945205 0.3 MILLIGRAMS DAILY ORAL 05/11/2014 13:33 Sertraline 100MG Oral Tablet 692935 200 MILLIGRAMS DAILY ORAL 05/11/2014 13:33 Tramadol 50MG Oral Tablet 609349 100 MILLIGRAMS QID ORAL 05/11/2014 13:33 Trazodone 50MG Oral Tablet 460777 50 MILLIGRAMS AT BEDTIME ORAL 05/11/2014 13:33 Valium 2MG Oral Tablet 190522 2 MILLIGRAMS Q8 H PRN ORAL 05/11/2014 13:33 Medications Administered During Visit Unknown or Not Available. Encounters Encounter Diagnosis Diagnosis Code Start Date [place] DAM[place] EMB/[place] [address] 09/14/2014 Social History Smoking Status Code Start Date End Date Never smoker [id number] Patient Decision Aids Unknown or Not Available. Discharge Instructions You were admitted to [facility] on 09/14/2014 with a principal diagnosis of ACU DAMIR EMB/THROM UNSPEC DP VESS LE. You were discharged from [facility] on 09/14/2014. Should you have any questions prior to [...]
--- OUTSIDE RECORDS SUMMARY | 2016-12-04 14:13 | XMS REPORT | CCD ---
Author Author MESSI ANDRES Organization Unknown Address [address] [place], [place] [id number] Phone 0 Care Team Providers Care Molecular Genetic Pathologist Name Role Phone JOSE MARCUS Attending Physician [phone] Vital Signs Unknown or Not Available. Allergies Allergy Code Allergy Type Reaction Status CEFTIN 078477 Drug allergy Active CEFZIL 839386 Drug allergy Active Procedures Unknown or Not Available. History of Immunizations Immunization Code Date pneumococcal, unspecified formulation 109 03/06/2014 Problems Unknown or Not Available. Results Unknown or Not Available. Active Medications Medication Code Dose Units Frequency Route Modification Start Date/Time Metformin 500MG Oral Tablet 898407 500 MILLIGRAMS AT BEDTIME ORAL 05/11/2014 13:33 Prescription Detail 500 MILLIGRAMS ORAL AT BEDTIME Sertraline 100MG Oral Tablet 693583 200 MILLIGRAMS DAILY ORAL 05/11/2014 13:33 Prescription Detail 200 MILLIGRAMS ORAL DAILY Medications Administered During Visit Unknown or Not Available. Encounters Unknown or Not Available. Social History Smoking Status Code Start Date End Date Never smoker [id number] Patient Decision Aids Unknown or Not Available. Discharge Instructions You were admitted to [facility] on 11/09/2016 09:38 You were discharged from [facility] on 11/09/2016 09:38 Should you have any questions prior to discharge, please contact a member of your healthcare team. If you have left the hospital and have any questions, please contact your primary care physician. Chief Complaint and Reason For Visit Chief Complaint Date of Onset XR LT HIP Function Status Unknown or Not Available. Plan of Care Unknown or Not Available. Referral/Transition of Care Unknown or Not Available.
--- OUTSIDE RECORDS SUMMARY | 2016-12-04 14:13 | XMS REPORT | Summary of Care ---
Author Author Suresh Espinal M.D. Organization Unknown Address [address] [place] [address] [place] [address] Phone Unavailable Care Team Providers Care Pulp Grinder Feeder Name Role Phone Suresh Espinal M.D. 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 Quantity: 30 Cho M.D., Suresh * Start 22-Jul-2015 Active Gabapentin 300 MG Oral Capsule TAKE 1 CAPSULE 3 times daily * Quantity: 180 Refills: 0 Cho M.D., Suresh * Start 22-Jul-2015 Active BusPIRone HCl - 10 MG Oral Tablet TAKE 1 TABLET 3 times daily PRN anxiety * Refills: 0 Cho M.D., Suresh Mariscal Start 22-Jul-2015 Active Atenolol 25 MG Oral Tablet TAKE 1 TABLET DAILY. * Refills: 0 Cho M.D., Suresh * Start 22-Jul-2015 Active Sertraline HCl - 100 MG Oral Tablet TAKE 2 TABLETS DAILY. * Refills: 0 Cho M.D., Suresh * Start 22-Jul-2015 Active TraZODone HCl - 100 MG Oral Tablet TAKE 2 TABLET Bedtime * Refills: 0 Cho M.D., Suresh Mariscal Start 22-Jul-2015 Active MetFORMIN HCl - 500 MG Oral Tablet TAKE 1 TABLET DAILY DIRECTED. * Refills: 0 Cho M.D., Suresh * Start 22-Jul-2015 Active Ziprasidone HCl - 80 MG Oral Capsule TAKE 2 CAPSULES AT BEDTIME. * Refills: 0 Cho Oral.Casimiro., Suresh * Start 22-Jul-2015 Active Ibuprofen 400 MG Oral Tablet TAKE 1 TABLET Every 6 hours * Refills: 0 Cho M.D., Suresh * Start 31-Dec-2015 Active Skelaxin 800 MG Oral Tablet TAKE 0.5 TABLET Every 6 hours * Refills: 0 Cho M.Casimiro., Suresh * Start 31-Dec-2015 Active [place] 10-325 MG Oral Tablet TAKE 1 TABLET 3 times daily * Refills: 0 * Start 02-Jun-2016 Active Ibuprofen 600 MG Oral Tablet TAKE 1 TABLET 3 TIMES DAILY NEEDED. * Refills: 0 * Start 02-Jun-2016 Active Allergies and Adverse Reactions Name Dates Details Ceftin (Allergy) Status: Active Cefzil (Allergy) Status: Active Past Medical History Name Dates Details History of Anxious appearance (799.29, R45.89) Status: Resolved History of Chronic back pain (724.5, M54.9) Status: Resolved History of Chronic pain (338.29, G89.29) Status: Resolved History of Deep vein thrombosis of lower extremity (453.40, I82.409) Status: Resolved History of Depressive disorder (311, F32.9) Status: Resolved History of Incomplete bladder emptying (788.21, R33.9) Status: Resolved History of Morbid obesity (278.01, [...] Dates Details Immunizations not documented Family History Name Dates Details Family history of Colon cancer (153.9, C18.9) Status: Active Name Dates Details Family history of hypertension (V17.49, Z82.49) Status: Active Family history of cerebrovascular accident (CVA) (V17.1, Z82.3) Status: Active Family history of diabetes mellitus (V18.0, Z83.3) Status: Active Name Dates Details Family history of hypertension (V17.49, Z82.49) Status: Active Family history of diabetes mellitus (V18.0, Z83.3) Status: Active Name Dates Details Family history of myocardial infarction (V17.3, Z82.49) Status: Active Social History Name Dates Details - Status: Name Dates Details Former smoker Vital Signs Date Test Result Details No Known Vitals to report Results Date Description Value Details Results not documented Plan of Care Name Dates Details Planned Observations Planned Goals not documented Planned Encounters Appointment; Provider: Suresh Espinal M.D. On 29-Dec-2016 11:00 Instructions Name Dates Details Instructions not documented Encounters Appointment; Suresh Espinal M.D. Encounter Diagnosis: Problem not documented On 31-Dec-2015 15:00 Appointment; Suresh Espinal M.D. Encounter Diagnosis: Problem not documented On 23-Jul-2015 09:45 Appointment; Nathan Meek M.D. Encounter Diagnosis: Problem not documented On 22-Jan-2015 10:00 Appointment; Nathan Meek M.D. Encounter Diagnosis: Problem not documented On 04-Dec-2014 08:15 Appointment; Nathan Meek M.D. Encounter Diagnosis: Problem not documented On 25-Sep-2014 10:45 Appointment; Nathan Meek M.D. Encounter Diagnosis: Problem not documented On 07-Aug-2014 09:00 Appointment; Nathan Meek M.D. Encounter Diagnosis: Problem not documented On 05-Jun-2014 08:45
--- OUTSIDE RECORDS SUMMARY | 2016-12-04 14:13 | XMS REPORT | Summary of Care ---
Author Author Suresh Espinal M.D. Organization Unknown Address [address] [place] [address] [place] [address] Phone Unavailable Care Team Providers Care Qualitative Executive Researcher Name Role Phone Suresh Espinal M.D. 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 * Refills: 0 Suresh Espinal M.D.* Started 22-Jul-2015 ActiveOxyCODONE HCl - 5 MG Oral Tablet TAKE 1 TABLET EVERY 4 TO 6 HOURS NEEDED FOR PAIN. * Refills: 0 Suresh Espinal M.D.* Started 22-Jul-2015 ActiveBusPIRone HCl - 10 MG Oral Tablet TAKE 1 TABLET 3 TIMES DAILY. * Refills: 0 Suresh Espinal M.D.* Started 22-Jul-2015 ActiveMeloxicam 15 MG Oral Tablet TAKE 1 TABLET DAILY NEEDED. * Refills: 0 Suresh Espinal M.D.* Started 22-Jul-2015 ActiveAtenolol 25 MG Oral Tablet TAKE 1 TABLET DAILY. * Refills: 0 Suresh Espinal M.D.* Started 22-Jul-2015 ActiveSertraline HCl - 100 MG Oral Tablet TAKE 2 TABLETS DAILY. * Refills: 0 Suresh Espinal M.D.* Started 22-Jul-2015 ActiveTraZODone HCl - 50 MG Oral Tablet TAKE 1 TABLET DAILY. * Refills: 0 Suresh Espinal M.D.* Started 22-Jul-2015 ActiveMetFORMIN HCl - 500 MG Oral Tablet TAKE 1 TABLET DAILY DIRECTED. * Refills: 0 Suresh Espinal M.D.* Started 22-Jul-2015 ActiveZiprasidone HCl - 80 MG Oral Capsule TAKE 2 CAPSULES AT BEDTIME. * Refills: 0 Suresh Espinal M.D.* Started 22-Jul-2015 ActiveMultivitamins Oral Capsule TAKE 1 CAPSULE DAILY. * Refills: 0 Suresh Espinal M.D.* Started 22-Jul-2015 Active Allergies and Adverse Reactions Name Dates [...] smoker Vital Signs Date Test Result Details 23-Jul-2015 09:55 BP Systolic 125 mm[Hg] Status: BP Diastolic 73 mm[Hg] Status: Heart Rate 59 /min Status: Height 65 in Status: Weight 247 lb Status: Body Mass Index Calculated 41.1 kg/m2 Status: Body Surface Area Calculated 2.16 m2 Status: Results Date Description Value Details Results not documented Plan of Care Planned Observations* Name Dates Details Planned Goals not documented Goal Planned Encounters* Appointment; Provider: Suresh Espinal On 22-Oct-2015 09:30 Instructions * Instructions not documented Encounters Appointment; [...]
--- NOTE | 2016-12-04 14:18 | ERPDOC ---
Departure Disposition Decision Date: Dec 04, 2016 Disposition Decision Time: 16:16 Disposition: 01 DISCHARGED HOME, SELF-CARE Impression Impression Impression: Primary Impression: Strain of right knee Encounter type: initial encounter Qualified Codes: S86.911A - Strain of unspecified muscle(s) and tendon(s) at lower leg level, right leg, initial encounter Severity: Moderate Condition: Stable Seen By: Physician only Referrals: NEVAEH PELAYO MD Call office for follow-up appointment Patient Instructions: Knee Immobilizer (ED) Problems/Meds/Labs Reviewed?: Yes Medications reviewed and manag: Yes Follow up care ordered?: Yes Mental Status: Alert, Oriented Scripts Oxycodone HCl/Acetaminophen (Oxycodone-Acetaminophen 5-325) 5-325 Tablet 1-2 TAB PO Q6H Y for PAIN, #20 TAB Prov: FREIDA PEACOCK MD 12/04/16 HPI General Chief Complaint: Lower Extremity Pain Stated Complaint: RT LEG INJ Time Seen by Provider: 14:17 Source: patient Exam Limitations: no limitations HPI Knee Initial Comments Patient is a 56-year-old female presents emergency room for evaluation of right knee pain. Patient sustained injury to her knee , has been evaluated by her primary medical physician, currently on a fentanyl patch and other pain medications. Patient states this is not doing anything for pain, decided today to present to the [facility] for evaluation. Occurred At: home Allergies: Coded Allergies: cefprozil (Verified Allergy, Intermediate, 12/04/16) cefuroxime (Verified Allergy, Intermediate, 12/04/16) Past History Past Medical History Metabolic: diabetes, hypertension Social History Smoking Status: Current every day smoker Substance Use Type: does not use Alcohol Intake: none Review of Systems Constitutional Constitutional: DENIES: appetite decrease, dizziness, fever, weakness Eyes Vision: DENIES: loss of visual blum ENMT Sinuses: DENIES: congestion Mouth/Throat: DENIES: scratchy throat, sore throat Cardiovascular Cardiac: DENIES: chest pain Pulmonary Respiratory: DENIES: cough, sputum GI Upper Abdomen: DENIES: pain Lower Abdomen: DENIES: pain Musculoskeletal General: see HPI Integumentary Skin: DENIES: color change, itching, rash Endocrine Endocrine: DENIES: heat/cold intolerance Hematologic/Lymphatic Hematologic/Lymphatic: DENIES: anemia Exam General General Nourishment: well nourished, well developed Vital Signs: RN Vital Signs have been reviewed: Yes, Temperature: 98.2, Source : Oral, Heart Rate: 90, Respiratory Rate: 30, BP: 182/88, Pulse Oximetry: 89 Height (Feet): 5 Height (Inches): 5.00 Fastrak Knee Knee : Knee: Right Inspection: NOT FOUND: discoloration, erythema, swelling Palpation: tender lat. joint line, tender med. joint line, warm Stability: NOT FOUND: A/P cruciate, MCL intact, anterior drawer sign, posterior drawer sign ROM: extension to 180 degrees, flexion to 0 degrees Neuro: soft touch intact, strength Posterior Tibial pulse: 3+ Dorsalis Pedis pulse: 3+ Comments 2+ DP/PT pulses sensation intact distally flexion extension of toes and ankle intact Neurologic RN Documented GCS Eye Opening: Verbal: Motor: Total: Differential Diagnoses Considering: Contusion, Fracture, Sprain, Strain, Tibial Plateau Fracture Progress Results/Orders Orders Medications Current ED Medications Ketorolac Tromethamine (Toradol) 60 mg O ONCE IM Last administered on 16:32; Start 12/04/16 at 16:15; Stop 12/04/16 at 16:17; Status DC Oxycodone/ Acetaminophen (Percocet 5/325) 1 tab O ONCE PO Last administered on 12/04/16 16:32; Start 12/04/16 at 16:30; Stop 12/04/16 at 16:31; Status DC Xray Xray : Xray: Knee R Interpretation: Normal, Reviewed Written Report (no acute fractures or dislocations noted) FREIDA PEACOCK MD Dec 04, 2016 14:17
--- NOTE | 2016-12-04 14:30 | NUR ---
STATUS PATIENT RESTS COMFORTABLY
[2016-12-04] MEDS ORDERED: DULO30CA2 PO (15:05)
[2016-12-04] MEDS ORDERED: ATEN25TA PO (15:05)
[2016-12-04] MEDS ORDERED: FENT1PAT TOP (15:05)
[2016-12-04] MEDS ORDERED: ACET-62 PO (15:05)
[2016-12-04] MEDS ORDERED: ZIPR80CA2 PO (15:05)
[2016-12-04] MEDS ORDERED: BUSP10TA3 PO (15:26)
[2016-12-04] MEDS ORDERED: METF500T4 PO (15:26)
[2016-12-04] MEDS ORDERED: TRAZ-173 PO (15:26)
--- NOTE | 2016-12-04 15:27 | NUR ---
XRAY TO XRAY VIA CART
--- NOTE | 2016-12-04 16:10 | DI ---
Indication: ITS.REASON: knee pain PROCEDURE: KNEE RIGHT 3 VIEWS: Encounter: Initial Comparison: None Findings: There is no acute fracture, dislocation or malalignment identified. There is mild to moderate tricompartmental osteoarthritis of the right knee primarily involving the medial joint compartment but also the patellofemoral joint compartment with relative sparing of the lateral joint compartment. No definite effusion. The overall mineralization is normal. No abnormal calcification or bony erosion. Impression: Tricompartmental osteophyte arthritis primarily involving the medial joint compartment and to a lesser degree the patellofemoral joint compartment. No acute osseous abnormality. .
[2016-12-04] MEDS ORDERED: KETOROLAC 60mg/2ml INJECTION IM ONE (16:15)
[2016-12-04] MEDS ORDERED: OXYCODONE/APAP 5mg/325mg TABLET PO ONE (16:30)
--- OUTSIDE RECORDS SUMMARY | 2016-12-04 16:34 | XMS REPORT | Continuity of Care Document ---
Author Author [facility] Organization [facility] Address Unknown Phone Unavailable Allergies Active Description [...] Performed On PERCUT KYPHOPLASTYEVERARDO MD, Alan 01/10/2013 [id number] PERCUT KYPHOPLASTY, ADD-O Benigno Alfaro MD 01/10/2013 [...] Status Pt. Type Provider Facility Loc./Unit Complaint [id number] 01/10/2013 04:57:00 2012 16:00:00 DIS Outpatient Dominic SMALLS, Benigno [address]
--- OUTSIDE RECORDS SUMMARY | 2016-12-04 16:34 | XMS REPORT | Continuity of Care Document ---
Author Author [facility] Organization [facility] Address Unknown Phone Unavailable Care Team Providers Care Field Hockey And Lacrosse Coach Name Role Phone Guillermo Stephens Primary Care Physician [phone] Source Comments Some departments are not documenting in the electronic medical record. If you do not see the information that you expected, contact Release of Information in the Health Information Management department at [phone] for further assistance in locating additional records.[facility] Active Allergies and Adverse Reactions Allergen Noted [...]
[2016-12-04] MEDS ORDERED: OXYC-541 PO (16:37)
[2016-12-04 17:28] VITALS: BP 182/88; PULSE 90; RESP 30; TEMP 98.2; O2SAT 89
== END 2016-12-04 17:28 | disposition home or self-care (01) ==
LOC: ED 13:57
DX: S86.911A Strain of unspecified muscle(s) and tendon(s) at lower leg level, right leg, initial encounter (principal); X58.XXXA Exposure to other specified factors, initial encounter; Y93.9 Activity, unspecified; Y92.009 Unspecified place in unspecified non-institutional (private) residence as the place of occurrence of the external cause; Y99.8 Other external cause status
CPT/HCPCS: 73562; 96372; 99283; J1885